=== PATIENT | male | born 1995 | race African-American/Black ===

== ENCOUNTER 2020-05-31 11:17 | Emergency (ER) | payer OTHER ==
[2020-05-31 11:35] VITALS: BP 152/69
[2020-05-31] MEDS ORDERED: ceFAZolin 1 GM VIAL IM STA (11:47)
[2020-05-31 11:54] LABS: RAPID STREP SCREEN Negative (Negative)
[2020-05-31] MEDS ORDERED: BACITRACIN ZINC OINT 1 PACKET TOP STA (11:58)
--- NOTE | 2020-05-31 12:56 | ED Physician Documentation ---
History of Present Illness - Stated complaint Stated Complaint: SORE THROAT - Chief complaint Chief Complaint: General - History obtained from History obtained from: Patient - History of Present Illness Timing: Prior to arrival - Additonal information Additional information: 25-year-old male presents to the ER with 2 concerns 1. Sore throat that began this a.m. No cough no fevers no exudate. He contacted [facility] and they reported they would get back to him about getting Covid testing however after few hours he did not hear from them so he comes to the emergency department. He denies any known Covid contacts. He has no dyspnea or loss of taste or smell. Second concern is that this a.m. he noticed a little bit of exudate on the glans of his penis when he retracted the foreskin. He reports that there was some mild itching and penile discharge. He is sexually active with his and is in a monogamous relationship. Denies dysuria urgency or frequency. No testicular pain or scrotal swelling. Review of Systems Constitutional: denies: Fever, Chills Eyes: reports: Reviewed and negative Ears: reports: Reviewed and negative Nose: reports: Reviewed and negative Throat: reports: Sore throat. denies: Swollen tonsils, Swallowed foreign body Cardiac: denies: Chest pain / pressure, Palpitations Respiratory: denies: Dyspnea, Cough GI: denies: Abdominal Pain, Abdominal Swelling, Nausea, Vomiting : denies: Dysuria, Frequency, Hesitancy PD PAST MEDICAL HISTORY - Past Medical History Past Medical History: No Cardiovascular: None Respiratory: None Neuro: None Endocrine/Autoimmune: None GI: None : None HEENT: None Psych: None Musculoskeletal: None Derm: None - Past Surgical History Past Surgical History: No - Present Medications Home Medications: Ambulatory Orders Medication Instructions Recorded Confirmed No Known Home Medications 05/31/20 05/31/20 - Allergies Allergies/Adverse Reactions: Allergies Allergy/AdvReac Type Severity Reaction Status Date / Time No Known Drug Allergies Allergy Verified 05/31/20 11:36 - Social History Does the pt smoke?: No Smoking Status: Never smoker Does the pt drink ETOH?: No Does the pt have substance abuse?: No - Immunizations Immunizations are current?: Yes PD ED PE EXPANDED - General General: Alert, No acute distress, Well developed/nourished - HEENT HEENT: Atraumatic, EOMI, Pharynx normal. No: Nasal congestion, Swollen tonsils, Tonsillar exudate - Eyes Eyes: PERRL. No: Normal accommodation - Neck Neck: Supple w/out meningeal sx, No tenderness. No: Adenopathy - Cardiac Cardiac: Regular Rate, Regular Rhythm - Respiratory Respiratory: Clear to ausultation jane. No: Distress, Labored - Abdomen Abdomen: Normal Bowel sounds. No: Tender to palpation - Male Male : Normal Exam, Testes descended jane, Normal lie/cremastaric, Cultures sent (GC pending). No: Circumcised, Skin lesions, Discharge, Testicular Mass, Tenderness - Neuro Neuro: Alert and Oriented X 3, CNII-XII intact, CN deficit Results - Vitals Vitals: Vital Signs - 24 hr 05/31/20 11:33 Temperature 37.0 C Heart Rate 71 Respiratory 16 Rate Blood Pressure 152/69 H O2 Saturation 100 Oxygen O2 Source Room air - Labs Labs: Laboratory Tests 05/31/20 11:45 Group A Strep Rapid Negative PD MEDICAL DECISION MAKING - ED course Complexity details: reviewed results, considered differential, d/w patient ED course: 25-year-old male presents the emergency department chief complaint of a sore throat. He has no fever tonsillar exudate or tender cervical lymphadenopathy. Rapid strep is negative. Will defer any antibiotics at this time unless the culture is positive. We have screened him for COVID-19 and he is advised to remain in quarantine until these results are known. His second concern is that he had some white discharge on the glans of his penis under the foreskin this a.m. He reports that he is sexually monogamous with his and has not had sex outside the relationship. On exam here in the emergency department he has an unremarkable exam without any lesions or it is possible that he may have had some subtle smegma that he has cleansed away though he denies that this is a possibility. We will screen him for chlamydia and gonorrhea via urine. Departure - Departure Disposition: 01 Home, Self Care Clinical Impression: Sore throat, Penile discharge Condition: Stable Record reviewed to determine appropriate education?: Yes Comments: Elsy your rapid strep test is negative. We are testing you for COVID-19. You will only be notified if the Covid test is positive. To review the test you may log onto the [facility] portal in 48 to 72 hours. You must remain in quarantine until these test results are known. We will not start you on antibiotics for your sore throat unless that culture is positive. The exam of your penis and testicles was normal here in the emergency department. I did not see any discharge or sores. We are screening your urine for chlamydia and gonorrhea via urine. We will notify you if these results are positive.
== END 2020-05-31 13:06 | disposition home or self-care (01) ==
LOC: ED 11:17
DX: J02.9 Acute pharyngitis, unspecified (principal); R36.9 Urethral discharge, unspecified
CPT/HCPCS: 87070; 87430; 87491; 87591; 87661; 99282; 99283

== ENCOUNTER 2020-06-06 14:57 | Outpatient (CLI) | payer OTHER ==
[2020-06-06 16:11] LABS: C. PNEUMONIAE- RESP PCR PANEL NOT DETECTED
== END 2020-06-06 14:58 | disposition home or self-care (01) ==
LOC: LAB 14:57
PROVIDERS: ATTEND Emergency Medicine
DX: Z53.9 Procedure and treatment not carried out, unspecified reason (principal)
CPT/HCPCS: 0202U

== ENCOUNTER 2020-09-27 16:53 | Emergency (ER) | payer OTHER ==
[2020-09-27] MEDS ORDERED: LIDOCAINE 1% 2 ML VIAL MC ONE (17:18)
[2020-09-27] MEDS ORDERED: cefTRIAXone 500 MG VIAL IM STA (17:18)
[2020-09-27] MEDS ORDERED: AZITHROMYCIN 250 MG TABLET PO STA (17:18)
--- NOTE | 2020-09-27 17:21 | ED Physician Documentation ---
History of Present Illness - Stated complaint Stated Complaint: MALE - Chief complaint Chief Complaint: General - History obtained from History obtained from: Patient - Additonal information Additional information: Found out today that his girlfriend was positive for gonorrhea and presents for testing and treatment of same. He denies any symptoms. Review of Systems Constitutional: denies: Fever, Chills GI: denies: Abdominal Pain : denies: Dysuria, Frequency PD PAST MEDICAL HISTORY - Past Medical History Past Medical History: No Cardiovascular: None Respiratory: None Neuro: None Endocrine/Autoimmune: None GI: None : None HEENT: None Psych: None Musculoskeletal: None Derm: None - Past Surgical History Past Surgical History: No - Present Medications Home Medications: Ambulatory Orders Medication Instructions Recorded Confirmed No Known Home Medications 05/31/20 09/27/20 - Allergies Allergies/Adverse Reactions: Allergies Allergy/AdvReac Type Severity Reaction Status Date / Time No Known Drug Allergies Allergy Verified 09/27/20 17:00 - Social History Does the pt smoke?: No Smoking Status: Never smoker Does the pt drink ETOH?: No Does the pt have substance abuse?: No - Immunizations Immunizations are current?: Yes - POLST Patient has POLST: No PD ED PE NORMAL - Vitals Vital signs reviewed: Yes - General General: Alert and oriented X 3, No acute distress - Neuro Neuro: Alert and oriented X 3, Normal speech - Psych Psych: Normal mood, Normal affect Results - Vitals Vitals: Vital Signs - 24 hr 09/27/20 17:00 Temperature 37 C Heart Rate 74 Respiratory 16 Rate Blood Pressure 132/67 H O2 Saturation 98 Oxygen O2 Source Room air PD MEDICAL DECISION MAKING - ED course ED course: Onel presents for testing and treatment of STDs given his contact and he is tested and treated with IM Rocephin and oral azithromycin. Departure - Departure Disposition: 01 Home, Self Care Clinical Impression: Exposure to STD Condition: Good Record reviewed to determine appropriate education?: Yes Instructions: ED Gonorrhea Male Comments: Call your doctor to arrange a follow-up appointment, make the next available appointment. In the interim, return anytime if worse or if new symptoms d evelop.
[2020-09-27 18:01] VITALS: BP 130/76
[2020-09-27 23:29] LABS: CHLAMYDIA TRACHOMATIS DNA NEGATIVE (NEGATIVE); NEISSERIA GONORRHOEAE DNA NEGATIVE (NEGATIVE)
== END 2020-09-27 18:05 | disposition home or self-care (01) ==
LOC: ED 16:53
DX: Z20.2 Contact with and (suspected) exposure to infections with a predominantly sexual mode of transmission (principal)
CPT/HCPCS: 87491; 87591; 96372; 99283; A9270; 87661

== ENCOUNTER 2022-09-03 09:14 | Emergency (ER) | payer OTHER ==
[2022-09-03 09:28] VITALS: BP 144/84
[2022-09-03] MEDS ORDERED: DEXAMETHASONE 10 MG/ML VIAL PO STA (10:04)
--- NOTE | 2022-09-03 10:05 | ED Physician Documentation ---
PD HPI URI - Stated complaint Stated Complaint: CONGESTION,COUGH - Chief complaint Chief Complaint: Resp - History obtained from History obtained from: Patient, Family - History of Present Illness Timing - onset: How many weeks ago (1) Timing duration: Weeks (1) Timing details: Gradual onset Associated symptoms: Nasal congestion, Rhinorrhea. No: Fever - Additional information Additional information: 27-year-old male with rhinorrhea, cough, congestion and sore throat x1 week. No fevers. Son is sick with same Review of Systems Constitutional: denies: Fever, Chills Nose: reports: Rhinorrhea / runny nose, Congestion Throat: reports: Sore throat Cardiac: denies: Chest pain / pressure, Palpitations Respiratory: reports: Cough. denies: Wheezing GI: denies: Abdominal Pain, Nausea, Vomiting, Diarrhea Skin: denies: Rash PD PAST MEDICAL HISTORY - Past Medical History Past Medical History: No Cardiovascular: None Respiratory: None Neuro: None Endocrine/Autoimmune: None GI: None : None HEENT: None Psych: None Musculoskeletal: None Derm: None - Past Surgical History Past Surgical History: No - Present Medications Home Medications: Ambulatory Orders Medication Instructions Recorded Confirmed Benzonatate [Tessalon] 200 mg PO TID PRN #30 cap 09/03/22 Cetirizine HCl/Pseudoephedrine 1 each PO BID PRN #30 tab 09/03/22 [Zyrtec-D Tablet] - Allergies Allergies/Adverse Reactions: Allergies Allergy/AdvReac Type Severity Reaction Status Date / Time No Known Drug Allergies Allergy Verified 09/03/22 09:28 - Social History Does the pt smoke?: No Smoking Status: Never smoker Does the pt drink ETOH?: Yes Does the pt have substance abuse?: No - Immunizations Immunizations are current?: Yes - POLST Patient has POLST: No PD ED PE NORMAL - Vitals Vital signs reviewed: Yes - General General: Alert and oriented X 3, No acute distress - HEENT HEENT: PERRL, Ears normal, Moist mucous membranes, Other (Mild posterior pharyngeal erythema without tonsillar exudates.) - Neck Neck: Supple, no meningeal sign - Cardiac Cardiac: RRR, Strong equal pulses - Respiratory Respiratory: No respiratory distress, Clear bilaterally - Derm Derm: Warm and dry, No rash - Extremities Extremities: No edema - Neuro Neuro: Alert and oriented X 3 - Psych Psych: Normal mood, Normal affect Results - Vitals Vitals: Vital Signs - 24 hr 09/03/22 09:24 Temperature 36.9 C Heart Rate 83 Respiratory 18 Rate Blood Pressure 144/84 H O2 Saturation 98 Oxygen O2 Source Room air PD Medical Decision Making - ED course Complexity details: considered differential, d/w patient ED course: Patient is well-appearing, nontoxic. Afebrile. No hypoxia. No respiratory distress. No indication of pneumonia clinically. No indication of sepsis. We will continue supportive care. Treat as viral URI. Patient counseled regarding signs and symptoms for which I believe and urgent re-evaluation would be necessary. Patient with good understanding of and agreement to plan and is comfortable going home at this time This document was made in part using voice recognition software. While efforts are made to proofread this document, sound alike and grammatical errors may occur. Departure - Departure Disposition: 01 Home, Self Care Clinical Impression: Viral URI Condition: Good Instructions: ED Viral Syndrome Follow-Up: your,doctor in 1 week [Other] Prescriptions: Benzonatate [Tessalon] 200 mg PO TID PRN #30 cap PRN Reason: Cough Cetirizine HCl/Pseudoephedrine [Zyrtec-D Tablet] 1 each PO BID PRN #30 tab PRN Reason: nasal congestion Comments: Your prescriptions were sent to [facility] in [place]. Please follow-up with your doctor for further care. Please return if you worsen. There is no indication of pneumonia or need for antibiotics today. Drink plenty of fluids at home. Forms: Activity restrictions Discharge Date/Time: 09/03/22 10:29
== END 2022-09-03 10:29 | disposition home or self-care (01) ==
LOC: ED 09:14
DX: J06.9 Acute upper respiratory infection, unspecified (principal)
CPT/HCPCS: 99282; 99283

== ENCOUNTER 2023-06-17 15:45 | Outpatient (CLI) | payer OTHER ==
[2023-06-17 22:38] LABS: CHLAMYDIA TRACHOMATIS DNA NEGATIVE (NEGATIVE); NEISSERIA GONORRHOEAE DNA NEGATIVE (NEGATIVE); TRICHOMONAS VAGINALIS DNA NEGATIVE (NEGATIVE)
[2023-06-19 04:09] LABS: HCV AB Non Reactive (Non Reactive); HIV SCREEN 4TH GENERATION Non Reactive (Non Reactive)
[2023-06-19 06:10] LABS: RPR Non Reactive (Non Reactive)
== END 2023-06-17 16:00 | disposition home or self-care (01) ==
LOC: LAB.N 15:45
PROVIDERS: ATTEND Physician Assistant Medical
DX: Z11.3 Encounter for screening for infections with a predominantly sexual mode of transmission (principal)
CPT/HCPCS: 36415; 86592; 86803; 87389; 87491; 87591; 87661

== ENCOUNTER 2023-08-21 16:31 | Outpatient (CLI) | payer OTHER ==
[~2023-08-21 16:31] MED LIST: GADOTERATE MEGLUMINE 10 MMOL/20 ML VIAL ONE
[2023-08-21] MEDS: GADOTERATE MEGLUMINE 10 MMOL/20 ML VIAL IVP ONE (19:40)
--- NOTE | 2023-08-22 11:33 | MRI Report ---
PROCEDURE: Foot LT W/WO INDICATIONS: CYSTIC LESION LT FOOT CONTRAST: clariscan 18.6ml TECHNIQUE: Noncontrast sagittal T1 spin echo and T2 fast spin echo with fat saturation, long-axis T1 spin echo a nd T2 fast spin echo with fat saturation; short-axis T1 spin echo, proton density fast spin echo, and T2 fast spin echo with fat saturation through the forefoot. Post-contrast short axis, long axis, an d sagittal T1 spin echo with fat saturation through the forefoot. COMPARISON: None. FINDINGS: Image quality: Excellent. Bones and joints: No suspicious osseous enhancement. No bone marrow contusions or metatarsal stress fractures. The sesamoid bones appear in expected positions, without internal edema. No metatarsoph alangeal joint degeneration. No intraosseous lesions. Soft tissues: Superficial [id number], E5B-[id number] lesion is seen at the plantar medial asp ect of the forefoot just proximal to the hallux sesamoids measuring 7 x 6 x 12 mm. A 4 mm hypoechoic focus is seen within the lesion. There is avid postcontrast enhancement. No additional enhancing soft tissue lesion is seen. Small focus of nonspecific susceptibility artifact is seen along the skin susie face at the plantar lateral aspect of the midfoot. The visualized plantar foot muscles demonstrate no rmal signal and bulk. Visualized flexor and extensor tendons appear intact, without tenosynovitis. The distal insertions of the peroneus brevis and longus tendons appear intact. The principal Lisfran c ligament appears intact. Sagittal images demonstrate no evidence for plantar plate tears. IMPRESSION: Heterogeneous oval K8B-[id number] enhancing lesion is seen in the subcutaneous tissues at the plant ar medial aspect of the forefoot measuring up to 12 mm in maximum dimension. Differential considerati ons include a vascular malformation, skin lesion, or a benign or malignant soft tissue mass. Reviewed by: Harshil Decker MD on 08/22/2023 11:32 AM PST Approved by: Harshil Decker MD on 08/22/2023 11:32 AM PST Station ID: [id number]
== END 2023-08-21 16:32 | disposition home or self-care (01) ==
LOC: DI 16:31
PROVIDERS: ATTEND Podiatrist
DX: R93.6 Abnormal findings on diagnostic imaging of limbs (principal); R93.89 Abnormal findings on diagnostic imaging of other specified body structures
CPT/HCPCS: 73720; A9575

== ENCOUNTER 2023-10-02 08:36 | Outpatient (CLI) | payer OTHER ==
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
== END 2023-10-02 08:37 | disposition home or self-care (01) ==
LOC: DI 08:36
DX: S40.022A Contusion of left upper arm, initial encounter (principal); S43.492A Other sprain of left shoulder joint, initial encounter; M19.012 Primary osteoarthritis, left shoulder; M75.92 Shoulder lesion, unspecified, left shoulder

== ENCOUNTER 2024-03-11 13:55 | Emergency (ER) | payer OTHER ==
--- NOTE | 2024-03-11 14:23 | ED Physician Documentation ---
PD HPI WOUND RECHECK - Stated complaint Stated Complaint: LT LEG BUMP - Chief complaint Chief Complaint: Wound - Histroy obtained from History obtained from: Patient (He has a cystic lesion inferior to the left buttock that is been bothering him for a few days. He thinks he had a similar one in the same spot in the past. No fevers.) PD PAST MEDICAL HISTORY - Past Medical History Past Medical History: Yes Cardiovascular: None Respiratory: None Neuro: None Endocrine/Autoimmune: None GI: None : None HEENT: None Psych: None Musculoskeletal: None Derm: None - Past Surgical History Past Surgical History: Yes Ortho: Other - Present Medications Home Medications: Ambulatory Orders Medication Instructions Recorded Confirmed Benzonatate [Tessalon] 200 mg PO TID PRN #30 cap 09/03/22 Cetirizine HCl/Pseudoephedrine 1 each PO BID PRN #30 tab 09/03/22 [Zyrtec-D Tablet] Amox/Clav 875/125 [Augmentin] 1 each PO Q12H #14 tablet 03/11/24 - Allergies Allergies/Adverse Reactions: Allergies Allergy/AdvReac Type Severity Reaction Status Date / Time No Known Drug Allergies Allergy Verified 03/11/24 14:08 - Social History Does the pt smoke?: No Smoking Status: Never smoker Does the pt drink ETOH?: Yes Does the pt have substance abuse?: No - Immunizations Immunizations are current?: Yes - POLST Patient has POLST: No PD ED PE NORMAL - Vitals Vital signs reviewed: Yes - General General: Alert and oriented X 3, No acute distress - Back Back: Other ([place] sized sebaceous cyst inferior to the left gluteal crease with no surrounding cellulitis.) - Derm Derm: Normal color, Warm and dry - Neuro Neuro: Alert and oriented X 3 Results - Vitals Vitals: Vital Signs - 24 hr 03/11/24 03/11/24 03/11/24 14:09 14:17 14:52 Temperature 36.9 C Heart Rate 86 Respiratory 16 17 16 Rate Blood Pressure 133/78 H O2 Saturation 99 Oxygen O2 Source Room air Procedures - Abscess I&D (location) Buttock Preparation: Lidocaine 2% Incision: Incised with scalpel, Purulent drainage, Loculations broken, Culture obtained Other: Pt tolerated well, Antibiotic prescribed Departure - Departure Disposition: 01 Home, Self Care Clinical Impression: Abscess Condition: Good Record reviewed to determine appropriate education?: Yes Instructions: ED Abscess IandD Prescriptions: Amox/Clav 875/125 [Augmentin] 1 each PO Q12H #14 tablet Comments: I sent your prescription electronically to the [facility] in [place]. We are performing a wound culture, the results should be done in 48-72 hours. If antibiotic change is necessary we will call you. Return if worse in the meantime, especially if you develop increased pain, fevers, cannot keep down the medication. Otherwise follow-up with your physician in approximately 2-3 days. Forms: PCP List Discharge Date/Time: 03/11/24 14:52
[2024-03-11 14:35] VITALS: BP 133/78; O2SAT 99
--- NOTE | 2024-03-14 13:54 | ED Physician Documentation ---
ED Addendum - Addendum Addendum: 03/14/24 13:54 I called patient regarding culture result. It grew E. coli that was resistant to Augmentin. He says he is doing well and there is really no residual bump or abscess there. No drainage or fevers and no pain. As such I do not think he needs any more antibiotics and he was advised to stop the Augmentin.
== END 2024-03-11 14:52 | disposition home or self-care (01) ==
LOC: ED 13:55
DX: L02.31 Cutaneous abscess of buttock (principal)
CPT/HCPCS: 10060; 87070; 87181; 87205